=== PATIENT | female | born 1970 | race African-American/Black ===

== ENCOUNTER 2016-03-17 07:30 | Inpatient (IN) ==
--- NOTE | 2016-03-09 12:25 | EKG Report ---
Stationary ECG Study [facility] Test Date: 03/09/2016 12:22:28 PM Pat Name: SUDHIR MANSFIELD Department: Room: Gender: F Hair And Makeup Designer: YOUNG 03[birth year]16 : 1970 Requested by: Hiren Braxton Order Number: [id number] Reading MD: ALFONSO MACKENZIE Intervals [place] Rate: 74 P: 84 RI: 195 QRS: 60 QRSD: 81 T: 48 QT: 345 QTc: 372 Interpretive Statements SINUS RHYTHM LOW QRS VOLTAGE IN PRECORDIAL LEADS SEPTAL MYOCARDIAL INFARCTION, PROBABLY OLD Electronically Signed On 03-09-16 12:23:34 WOOD MACHINIST by ALFONSO MACKENZIE [email or web address]
[2016-03-09 12:26] LABS: Basophils % 0.6 % (0.0-0.8); Eosinophils # 0.1 10*3/uL (0.0-0.87); Eosinophils % 1.3 % (0.00-10.9); Hematocrit 42.1 VOL% (35.7-47.0); Hemoglobin 13.7 GM/DL (12.0-16.0); Immature Granulocytes % 0.2 %; Immature Granulocytes Absolute 0.01 #; Lymphocytes # 2.3 10*3/uL (1.4-4.0); Lymphocytes % 35.6 % (21.3-54.2); Mean Corpuscular HGB Conc 32.5 GM/DL (32-36); Mean Corpuscular Hemoglobin 29 PG (27-34); Mean Corpuscular Volume 89.8 FL (87-102); Mean Platelet Volume 10.8 FL (9.6-12.0); Monocytes # 0.4 10*3/uL (0.11-0.8); Monocytes % 6.2 % (1.7-12.7); Neutrophils # 3.6 10*3/uL (1.4-7.4); Neutrophils % 56.1 % (38.7-73.9); Platelet Count 276 10*3/uL (130-400); Red Blood Count 4.69 10*6/uL (3.8-5.5); Red Cell Distribution Width 13.2 % (9.3-17.3); White Blood Count 6.3 10*3/uL (4.5-13.71)
[2016-03-09 12:30] LABS: Apearance,Urine Slightly Hazy (Clear); Bilirubin,Urine Negative (Negative); Blood, Urine Negative (Negative); Glucose,Urine (UA) Negative (Negative); Ketones,Urine Negative (Negative); Mucus,Urine Occasional /LPF (Occasional); Nitrite,Urine Negative (Negative); Protein,Urine Negative; RBC,Urine 1 /HPF (0-4); Squamous Epithelial Cell,Urine Occasional /HPF (0-10); Urine Color Yellow (Yellow); Urine Specific Gravity 1.016 (1.001-1.035); Urine Urobilinogen < 2.0 EU/DL (0.2-1.0); WBC,Urine <1 /HPF (0-6)
[2016-03-09 12:47] LABS: PT Patient Result 11.1 SECS; Partial Thromboplastin Time 32.3 SECS (0-40)
[2016-03-09 13:13] LABS: Albumin 3.8 G/DL (3.4-5.0); Bilirubin,Total 0.4 MG/DL (0.2-1.0); Potassium 4.3 MMOL/L (3.5-5.1); Total Protein 8.2 G/DL (6.4-8.3)
--- NOTE | 2016-03-09 18:54 | XRay Report ---
Exam: XR chest 2V Date: 03/09/2016 11:21 AM Indication: Respiratory preop evaluation of the chest Comparison: None Technical:PA lateral Findings: The heart normal in size lungs are clear. The mediastinum is intact. Anterolateral marginal osteophytes are present. Impression: 1. No acute cardiopulmonary pathology 2. Mild degenerative spondylosis change thoracic spine PROCEDURE INTERPRETED AT [facility] DEPARTMENT OF RADIOLOGY Final Report Signed by: Dr. Bernard Brothers
[~2016-03-17 07:30] MED LIST: VANCOMYCIN INJ 1,000 MG in SODIUM CHLORIDE 0.9% 250 ML IV ONE
[2016-03-19] MEDS: LACTATED RINGERS 1,000 ML IV SCH (06:22)
[2016-03-19] MEDS ORDERED: VANCOMYCIN 1,000 MG VIAL ONE (06:35)
[2016-03-19] MEDS ORDERED: ceFAZolin 1,000 MG VIAL ONE (06:35)
[2016-03-19] MEDS ORDERED: SODIUM CHLORIDE 0.9% 100 ML IV ONE (06:35)
[2016-03-19] MEDS ORDERED: ROPIVACAINE 0.5% 30 ML VIAL ONE ×2 (06:45→08:49)
--- NOTE | 2016-03-19 07:08 | History and Physical Update ---
History and Physical Update - History and Physical H&P was reviewed, the patient examined and there: are no changes in the patients condition since last H&P was completed.
[2016-03-19] MEDS ORDERED: PROPOFOL 500 MG/50 ML BOTTLE IV ONE (07:10)
[2016-03-19] MEDS ORDERED: SUCCINYLCHOLINE 200 MG/10 ML VIAL ONE (07:10)
[2016-03-19] MEDS ORDERED: LABETALOL 100 MG/20 ML VIAL IV ONE (07:10)
[2016-03-19] MEDS ORDERED: ONDANSETRON 4 MG/2 ML VIAL IV PRN (07:10)
[2016-03-19] MEDS ORDERED: ONDANSETRON 4 MG/2 ML VIAL ONE ×2 (07:10→09:05)
[2016-03-19] MEDS ORDERED: LACTULOSE 20 GM/30 ML UDCUP PO PRN (07:10)
[2016-03-19] MEDS ORDERED: PROMETHAZINE 25 MG/1 ML VIAL IM PRN (07:10)
[2016-03-19] MEDS ORDERED: MAGNESIUM HYDROXIDE SUSP 30 ML UDCUP PO PRN (07:10)
[2016-03-19] MEDS ORDERED: HYDROmorphone 2 MG/1 ML VIAL IV PRN (07:10)
[2016-03-19] MEDS ORDERED: PHENYLEPHRINE 50 MG/5 ML VIAL ONE (07:10)
[2016-03-19] MEDS ORDERED: TEMAZEPAM 7.5 MG CAPSULE PO PRN (07:10)
[2016-03-19] MEDS ORDERED: LIDOCAINE 100 MG/5 ML SYRINGE ONE (07:10)
[2016-03-19] MEDS ORDERED: diphenhydrAMINE CAP 25 MG CAPSULE PO PRN (07:10)
[2016-03-19] MEDS ORDERED: BISACODYL 10 MG SUPP RECTAL PRN (07:10)
[2016-03-19] MEDS ORDERED: ASPIRIN EC 325 MG TABLET PO PRN (07:12)
[2016-03-19] MEDS: HYDROmorphone 2 MG/1 ML VIAL IV PRN ×4 (09:00→09:20)
[2016-03-19] MEDS ORDERED: HYDROmorphone 2 MG/1 ML VIAL ONE (09:05)
--- NOTE | 2016-03-19 09:11 | Anesthesia ---
Anesthesia Post OP - Post Ansesthetic Evaluation Patient seen in post op: Yes Resp: within normal limits CV: within normal limits Mental: within normal limits Temp: within normal limits Kzyf-Ol-[id number]: within normal limits Nausea and Vomiting: within normal limits Pain: within normal limits
[2016-03-19] MEDS ORDERED: SEVOFLURANE 1 UNIT/15 MINUTE INH ONE (09:13)
[2016-03-19] MEDS ORDERED: LACTATED RINGERS 1,000 ML IV ONE (09:14)
[2016-03-19] MEDS ORDERED: MIDAZOLAM 2 MG/2 ML VIAL ONE (09:14)
[2016-03-19] MEDS ORDERED: fentaNYL 100 MCG/2 ML VIAL ONE ×2 (09:14)
[2016-03-19] MEDS ORDERED: ACETAMINOPHEN 1,000 MG/100 ML VIAL IV ONE (09:14)
[2016-03-19] MEDS ORDERED: HYDROmorphone PCA 30 MG/30 ML SYRINGE IV ONE (09:44)
[2016-03-19] MEDS: HYDROmorphone PCA 30 MG/30 ML SYRINGE IV SCH (09:46)
--- NOTE | 2016-03-19 10:04 | XRay Report ---
XR knee 2V LT Indication: Joint replacement Comparison: None Technique: Frontal and lateral views of the left knee Findings: Status post total knee arthroplasty. No evidence of immediate hardware failure. Surgical drains and superficial skin rocio project over the knee. Small subcutaneous and joint space air noted which is likely postoperative. IMPRESSION: Status post total left knee arthroplasty. PROCEDURE INTERPRETED AT [facility] DEPARTMENT OF RADIOLOGY Final Report Signed by: Dr Jose Ramon Clark
--- NOTE | 2016-03-19 11:18 | Operative Note ---
DATE: 03/19/2016 PREOPERATIVE DIAGNOSIS: OSTEOARTHRITIS, LEFT KNEE. POSTOPERATIVE DIAGNOSIS: SAME. OPERATIVE PROCEDURE: Left total knee replacement ([place]). SURGEON: Hiren Braxton Jr., MD PRODUCTION COUNTER: Dr. Mckeon. ANESTHESIA: General. INDICATION: A 45-year-old white female with severe osteoarthritis. She maximized conservative treat ment through the years, presenting today for elective left total knee. OPERATIVE PROCEDURE: The patient was taken to the operating room and under general anesthetic, the left lower extremity was positioned, prepped and draped in the usual sterile manner. She received V ancomycin and Ancef preoperatively. The limb was elevated, exsanguinated, and tourniquet inflated t o 300 mmHg. A midline incision was made over the anterior aspect of the left knee, sharply dissected and carried down to the skin and subcutaneous tissue. A medial peripatellar arthrotomy was perform ed. The knee, revealing extensive tricompartmental degenerative changes. Intramedullary alignment guide was used to make the appropriate cuts about the distal femur and proximal tibia. Both were siz ed to a 5. A 6-millimeter fixed-bearing spacer selected. The PCL retained. After removal of the t rial components, all three components were cemented into place, the patellar resurfaced with a 38-bu tton. After the cement hardened, the tourniquet was deflated at 40 minutes as the wound was irrigat ed. Two 1/8-inch Hemovac drains placed, and it was closed in a standard fashion using #1 Vicryl for the arthrotomy, 2-0 Vicryl for the subcutaneous layer, and rocio for skin. A sterile dressing was applied. She was taken to the recovery room in stable condition.
--- NOTE | 2016-03-19 12:23 | Anesthesia ---
Anesthesia Procedures - Nerve Blocks Location: PACU Type of Block: Left: Femoral Patinet Consent: Patinet consented for above nerve block., Risks and benefits were discussed with patient,including infection,, bleeding,injury to surrounding structures, seizure, temporary nerve, Patient understands and accepts potential risks/benefits and agrees to, proceed. ASA Monitors on: pulse oximetry, EKG, BP cuff, oxygen via Local Anesthetic: 0.5% Ropivicaine (given in aliquots of 5cc and aspiration to total of 20cc) Ultrasound Used to: Recognize Landmarks, Visualize and ID Brachial Plexus in supraclavicular region, Visualize and ID interscalene groove Interscalene / Femoral BLK: Visualize local anesthetic spread Nerve Stimulator used: Yes Inject slowly in 5cc increments with:: Negative aspitation of heme, Paresthesia +/= Patient vitals signs stable throughout procedure.: Patient tolertaed the procedure well with no apparent complications.
[2016-03-19] MEDS: hydroCHLOROthiazide 25 MG TABLET PO SCH (12:54)
[2016-03-19] MEDS: VALSARTAN 160 MG TABLET PO SCH (12:54)
[2016-03-19] MEDS: FEXOFENADINE 180 MG TABLET PO SCH (12:54)
[2016-03-19] MEDS: amLODIPine 5 MG TABLET PO SCH (12:54)
[2016-03-19] MEDS: ceFAZolin 2,000 MG in PREMIX 1 EACH IV SCH ×2 (12:57→18:13)
--- NOTE | 2016-03-19 15:55 | Orthopedic Progress Note ---
Orthopediatrics - Subjective Interval history: Comfortable good pulse discussed up in a.m. Exam - Constitutional Vitals: Period Temp Pulse Resp BP Sys/Moeller Pulse Ox Last 24 Hr 96.9 F-98.3 F 62-78 16-20 107-160/66-97 96-100 Results - Labs CBC & BMP: 03/09/16 12:15 03/09/16 12:15 Specialty Discharge - Follow Up or Referrals - Discharge Medications No Action hydroCHLOROthiazide [Hydrochlorothiazide] 25 mg PO DAILY Aspirin [Ecotrin] 325 mg PO BEDTIME PRN PRN Reason: Pain Meloxicam [Mobic] 15 mg PO DAILY PRN PRN Reason: Arthritic Pain Fexofenadine [Janessa] 180 mg PO DAILY Amlodipine Besylate 5 mg PO DAILY Valsartan [Diovan] 160 mg PO DAILY
[2016-03-19] MEDS: FONDAPARINUX 2.5 MG/0.5 ML SYRINGE SUBCUT SCH (18:11)
[2016-03-20 06:15] LABS: Basophils % 0.3 % (0.0-0.8); Eosinophils % 0.4 % (0.00-10.9); Hematocrit 33.7 VOL% (35.7-47.0); Immature Granulocytes % 0.3 %; Immature Granulocytes Absolute 0.03 #; Lymphocytes # 1.9 10*3/uL (1.4-4.0); Lymphocytes % 19.6 % (21.3-54.2); Mean Corpuscular HGB Conc 32.6 GM/DL (32-36); Mean Corpuscular Hemoglobin 29 PG (27-34); Mean Corpuscular Volume 89.2 FL (87-102); Mean Platelet Volume 10.9 FL (9.6-12.0); Monocytes # 1.1 10*3/uL (0.11-0.8); Monocytes % 11.3 % (1.7-12.7); Neutrophils # 6.7 10*3/uL (1.4-7.4); Neutrophils % 68.1 % (38.7-73.9); Platelet Count 240 10*3/uL (130-400); Red Blood Count 3.78 10*6/uL (3.8-5.5); Red Cell Distribution Width 13.4 % (9.3-17.3); White Blood Count 9.9 10*3/uL (4.5-13.71)
--- NOTE | 2016-03-20 06:56 | Orthopedic Progress Note ---
Orthopediatrics - Subjective Interval history: Comfortable drain removed hemoglobin 11. Discussed start PT today was to go home with home health probably here through the weekend Exam - Constitutional Vitals: Period Temp Pulse Resp BP Sys/Moeller Pulse Ox Last 24 Hr 96.9 F-98.0 F 62-101 14-20 107-142/61-93 96-100 Results - Labs CBC & BMP: 03/20/16 05:56 03/09/16 12:15 Specialty Discharge - Follow Up or Referrals - Discharge Medications No Action hydroCHLOROthiazide [Hydrochlorothiazide] 25 mg PO DAILY Aspirin [Ecotrin] 325 mg PO BEDTIME PRN PRN Reason: Pain Meloxicam [Mobic] 15 mg PO DAILY PRN PRN Reason: Arthritic Pain Fexofenadine [Janessa] 180 mg PO DAILY Amlodipine Besylate 5 mg PO DAILY Valsartan [Diovan] 160 mg PO DAILY
[2016-03-20 06:58] LABS: Calcium 8.1 MG/DL (8.5-10.1)
[2016-03-20 06:59] LABS: Osmolality,Calculated 281.1 MOS/KG (273-304); Potassium 3.4 MMOL/L (3.5-5.1)
--- NOTE | 2016-03-20 08:36 | Cardiology Progress Note ---
Cardiology - PN: Subj Interval history: Doing well. No cardiac problems. EKG unchanged. Poor R-wave progression. No anterior AK. Call if needed. Exam (Progress Note) - Constitutional Vitals: Period Temp Pulse Resp BP Sys/Moeller Pulse Ox Last 24 Hr 96.9 F-98.0 F 62-101 14-20 107-142/61-93 96-100 Result/EKG - Labs CBC & BMP: 03/20/16 05:56 03/20/16 05:56 Labs: Laboratory Results - last 24 hr 03/20/16 03/20/16 05:56 05:56 WBC 9.9 RBC 3.78 L Hgb 11.0 L Hct 33.7 L MCV 89.2 MCH 29 MCHC 32.6 RDW 13.4 Plt Count 240 MPV 10.9 Neut % (Auto) 68.1 Lymph % (Auto) 19.6 L [place] % (Auto) 11.3 Eos % (Auto) 0.4 Baso % (Auto) 0.3 Neut # (Auto) 6.7 Lymph # (Auto) 1.9 [place] # (Auto) 1.1 H Eos # (Auto) 0.0 Baso # (Auto) 0.0 Immature Gran % 0.3 Nucleated RBC % 0.0 Immature Gran # 0.03 Nucleated RBCs # 0.00 Sodium 142 Potassium 3.4 L Chloride 104 Carbon Dioxide 26 Anion Gap 15.4 H BUN 8 Creatinine 0.80 GFR Calculation 146 BUN/Creatinine Ratio 10.00 Glucose 112 H Calculated Osmolality 281.1 Calcium 8.1 L Specialty Discharge - Follow Up or Referrals - Discharge Medications No Action hydroCHLOROthiazide [Hydrochlorothiazide] 25 mg PO DAILY Aspirin [Ecotrin] 325 mg PO BEDTIME PRN PRN Reason: Pain Meloxicam [Mobic] 15 mg PO DAILY PRN PRN Reason: Arthritic Pain Fexofenadine [Janessa] 180 mg PO DAILY Amlodipine Besylate 5 mg PO DAILY Valsartan [Diovan] 160 mg PO DAILY
[2016-03-20] MEDS: amLODIPine 5 MG TABLET PO SCH (09:17)
[2016-03-20] MEDS: VALSARTAN 160 MG TABLET PO SCH (09:17)
[2016-03-20] MEDS: FEXOFENADINE 180 MG TABLET PO SCH (09:17)
[2016-03-20] MEDS: hydroCHLOROthiazide 25 MG TABLET PO SCH (09:18)
[2016-03-20] MEDS: LACTATED RINGERS 1,000 ML IV SCH (09:55)
[2016-03-20] MEDS: HYDROmorphone PCA 30 MG/30 ML SYRINGE IV SCH (09:56)
--- NOTE | 2016-03-20 11:21 | Pathology Report from [facility] ---
ACCESSION # : [id number] PATIENT NAME : Edith Jackson ORDERING DR : VEGA BERNARD JR, MD CLINICAL HX: Left knee ostoearthritis POST-OP DX: Same SPECIMEN INFO: Left knee bone and tissue GROSS DESCRIPTION: The specimen is received in formalin labeled with the patient 's name Edith Jackson is an aggregate of bone, soft tissue and cartilage measuring 4.0 x 6.0 cm. The articular surfaces are focally degenerative with areas of sub chondral eburnation seen. Animation Camera Operator sections are submitted in one cassette. DIAGNOSIS FOR EDITH JACKSON: LEFT KNEE BONE AND TISSUE, TOTAL REPLACEMENT: Osteoarthritis. SERVICE DATE: 03/19/2016 REPORT DATE: 03/20/2016 PATHOLOGIST: Rosario Lo M.D. [facility]
[2016-03-20] MEDS: MELOXICAM 7.5 MG TABLET PO PRN (17:55)
[2016-03-20] MEDS: FONDAPARINUX 2.5 MG/0.5 ML SYRINGE SUBCUT SCH (17:55)
[2016-03-21] MEDS: LACTATED RINGERS 1,000 ML IV SCH (04:22)
[2016-03-21 04:43] LABS: Basophils % 0.3 % (0.0-0.8); Eosinophils % 0.4 % (0.00-10.9); Hematocrit 32.8 VOL% (35.7-47.0); Hemoglobin 10.7 GM/DL (12.0-16.0); Immature Granulocytes % 0.3 %; Immature Granulocytes Absolute 0.03 #; Lymphocytes # 1.3 10*3/uL (1.4-4.0); Lymphocytes % 13.5 % (21.3-54.2); Mean Corpuscular HGB Conc 32.6 GM/DL (32-36); Mean Corpuscular Hemoglobin 29 PG (27-34); Mean Corpuscular Volume 88.6 FL (87-102); Mean Platelet Volume 11.3 FL (9.6-12.0); Monocytes # 1.1 10*3/uL (0.11-0.8); Monocytes % 11.3 % (1.7-12.7); Neutrophils % 74.2 % (38.7-73.9); Platelet Count 228 10*3/uL (130-400); Red Cell Distribution Width 13.3 % (9.3-17.3); White Blood Count 9.4 10*3/uL (4.5-13.71)
--- NOTE | 2016-03-21 07:48 | Orthopedic Progress Note ---
Assessment and Plan (1) Status post total knee replacement, left Status: Acute Assessment and plan: DVT prophylaxis Out of bed with therapy Discharge Wednesday or Wednesday Current Visit: Yes Orthopediatrics - Subjective Interval history: Patient was able to ambulate to the hallway yesterday. Her pain is controlled. On exam her dressings clean and dry Exam - Constitutional Vitals: Period Temp Pulse Resp BP Sys/Moeller Pulse Ox Last 24 Hr 97.1 F-98.7 F 72-94 16-20 130-161/55-84 92-98 Results - Labs CBC & BMP: 03/21/16 03:59 03/20/16 05:56 Specialty Discharge - Follow Up or Referrals - Discharge Medications No Action hydroCHLOROthiazide [Hydrochlorothiazide] 25 mg PO DAILY Aspirin [Ecotrin] 325 mg PO BEDTIME PRN PRN Reason: Pain Meloxicam [Mobic] 15 mg PO DAILY PRN PRN Reason: Arthritic Pain Fexofenadine [Janessa] 180 mg PO DAILY Amlodipine Besylate 5 mg PO DAILY Valsartan [Diovan] 160 mg PO DAILY
[2016-03-21] MEDS: hydroCHLOROthiazide 25 MG TABLET PO SCH (09:30)
[2016-03-21] MEDS: amLODIPine 5 MG TABLET PO SCH (09:30)
[2016-03-21] MEDS: FEXOFENADINE 180 MG TABLET PO SCH (09:30)
[2016-03-21] MEDS: VALSARTAN 160 MG TABLET PO SCH (09:30)
[2016-03-21] MEDS: MELOXICAM 7.5 MG TABLET PO PRN (17:23)
[2016-03-21] MEDS: FONDAPARINUX 2.5 MG/0.5 ML SYRINGE SUBCUT SCH (17:23)
[2016-03-22 04:56] LABS: Basophils % 0.4 % (0.0-0.8); Eosinophils # 0.2 10*3/uL (0.0-0.87); Eosinophils % 2.3 % (0.00-10.9); Hematocrit 31.9 VOL% (35.7-47.0); Hemoglobin 10.3 GM/DL (12.0-16.0); Immature Granulocytes % 0.3 %; Immature Granulocytes Absolute 0.03 #; Lymphocytes # 2.4 10*3/uL (1.4-4.0); Lymphocytes % 26.6 % (21.3-54.2); Mean Corpuscular HGB Conc 32.3 GM/DL (32-36); Mean Corpuscular Hemoglobin 29 PG (27-34); Mean Corpuscular Volume 90.4 FL (87-102); Mean Platelet Volume 11.2 FL (9.6-12.0); Monocytes # 1.2 10*3/uL (0.11-0.8); Monocytes % 12.6 % (1.7-12.7); Neutrophils # 5.3 10*3/uL (1.4-7.4); Neutrophils % 57.8 % (38.7-73.9); Platelet Count 226 10*3/uL (130-400); Red Blood Count 3.53 10*6/uL (3.8-5.5); Red Cell Distribution Width 13.4 % (9.3-17.3); White Blood Count 9.1 10*3/uL (4.5-13.71)
--- NOTE | 2016-03-22 07:58 | Orthopedic Progress Note ---
Assessment and Plan (1) Status post total knee replacement, left Status: Acute Assessment and plan: DVT prophylaxis Out of bed with therapy Discharge Wednesday or Wednesday Current Visit: Yes Exam - Constitutional Vitals: Period Temp Pulse Resp BP Sys/Moeller Pulse Ox Last 24 Hr 97.4 F-99.1 F 80-105 16-20 136-174/75-96 94-97 Results - Labs CBC & BMP: 03/22/16 03:56 03/20/16 05:56 Specialty Discharge - Follow Up or Referrals - Discharge Medications No Action hydroCHLOROthiazide [Hydrochlorothiazide] 25 mg PO DAILY Aspirin [Ecotrin] 325 mg PO BEDTIME PRN PRN Reason: Pain Meloxicam [Mobic] 15 mg PO DAILY PRN PRN Reason: Arthritic Pain Fexofenadine [Janessa] 180 mg PO DAILY Amlodipine Besylate 5 mg PO DAILY Valsartan [Diovan] 160 mg PO DAILY
--- NOTE | 2016-03-22 09:15 | Discharge Summary ---
Hospital Course - Hospital Course Hospital Course: 45-year-old female admitted hospital following left total knee arthroplasty. She received routine antibiotics and thromboprophylaxis postoperatively. She did well with therapy and when she was ambulating safely, she is discharged home with home health and home PT. Plan discharge her wounds clean and dry and she is neurovascularly intact in the left lower extremity. Diagnosis - Discharge Diagnosis (1) Status post total knee replacement, left Status: Acute Specialty Discharge - Follow Up or Referrals - Discharge Medications No Action hydroCHLOROthiazide [Hydrochlorothiazide] 25 mg PO DAILY Aspirin [Ecotrin] 325 mg PO BEDTIME PRN PRN Reason: Pain Meloxicam [Mobic] 15 mg PO DAILY PRN PRN Reason: Arthritic Pain Fexofenadine [Janessa] 180 mg PO DAILY Amlodipine Besylate 5 mg PO DAILY Valsartan [Diovan] 160 mg PO DAILY Discharge Plan - Discharge Data Disposition: Home Health Service Condition at Discharge: Stable Discharge Diet: advance to your usual diet Activity: ambulate only with your walker Hygiene: may shower Weight Bearing at Discharge: weight bear as tolerated Driving: not until seen by doctor Contact your physician if you experience:: fever over 101, Difficulty voiding, Redness or swelling, Nausea/Vomiting, Shortness of breath, Bleeding, pain uncontrolled by pain medications Wound / Dressing Care Instructions: Daily dressing change to left knee - Discharge Medications New HYDROcodone/ACETAMIN 7.5-325 [[place] 7.5-325] 1 - 2 tablet PO Q4H PRN #60 tablet PRN Reason: Pain Moderate (4-7) Continue hydroCHLOROthiazide [Hydrochlorothiazide] 25 mg PO DAILY Aspirin [Ecotrin] 325 mg PO BEDTIME PRN PRN Reason: Pain Meloxicam [Mobic] 15 mg PO DAILY PRN PRN Reason: Arthritic Pain Fexofenadine [Janessa] 180 mg PO DAILY Amlodipine Besylate 5 mg PO DAILY Valsartan [Diovan] 160 mg PO DAILY - Follow Up or Referral Follow Up: Hiren Braxton Jr., MD [Physician] - (3-4 weeks) - Forms/Instructions Additional Discharge Instructions: Weight-bear as tolerated, total knee protocol. Daily dressing change. [place] out 04/01/2016 Exam - Constitutional Vitals: Period Temp Pulse Resp BP Sys/Moeller Pulse Ox Last 24 Hr 97.4 F-99.1 F 80-105 16-20 136-174/75-88 94-97 Discharge Results Labs on day of discharge: Labs from last 24 hours 03/22/16 03:56 WBC 9.1 RBC 3.53 L Hgb 10.3 L Hct 31.9 L MCV 90.4 MCH 29 MCHC 32.3 RDW 13.4 Plt Count 226 MPV 11.2 Neut % (Auto) 57.8 Lymph % (Auto) 26.6 [place] % (Auto) 12.6 Eos % (Auto) 2.3 Baso % (Auto) 0.4 Neut # (Auto) 5.3 Lymph # (Auto) 2.4 [place] # (Auto) 1.2 H Eos # (Auto) 0.2 Baso # (Auto) 0.0 Immature Gran % 0.3 Nucleated RBC % 0.0 Immature Gran # 0.03 Nucleated RBCs # 0.00 DS: Provider Date of admission: 03/19/16 05:35 Primary care physician: RIYA Chowdhury Attending physician on admission: Hiren Braxton Jr., MD Consults: 03/19/16 07:10 Consult to Case Mgmt/Social Srvs [CONS] Routine Reason for Case Mgmt/Social Srvs: Rehab Home Health Equipment Consult Comment: Bedside Commode, CPM, f/home, Pt 5ft 5in weighs 324lbs, deliver to home Consult to Occupational Therapy [CONS] Routine Reason for Occupational Therapy: Evaluate and Treat Consult Comment: ADL's Consult to Physical Therapy [CONS] Routine Reason for Physical Therapy: Evaluate and Treat Gait Training Consult Comment: CPM 0-30 this week and then advance 03/19/16 07:12 Consult to Physician [CONS] Routine Comment: Consulting Provider: Jonah Nuno Person Notified: ANNY Date Notified: 03/19/16 Time Notified: 16:07 Consult Notification Comment: STATES DR. NUNO DOES NOT COME TO HOSPITAL BUT SHE WILL LET HIM KNOW. [facility] ALSO CALLED SINCE DR. NUNO DOES NOT COME TO HOSPITAL AND WERNER STATES TO CALL DR. NUNO'S OFFICE. 03/20/16 10:46 Consult to Physical Therapy [CONS] Routine Reason for Physical Therapy: Other Consult Comment: Ordering Standard Walker for patient to take home w/her f/ home rehab. Discharging clinician: Rivera Mckeon MD
[2016-03-22] MEDS: hydroCHLOROthiazide 25 MG TABLET PO SCH (10:12)
[2016-03-22] MEDS: FEXOFENADINE 180 MG TABLET PO SCH (10:12)
[2016-03-22] MEDS: VALSARTAN 160 MG TABLET PO SCH (10:12)
[2016-03-22] MEDS: amLODIPine 5 MG TABLET PO SCH (10:12)
[2016-03-22 12:04] VITALS: BP 159/90
== END 2016-03-22 11:34 | disposition home health service (06) | DRG 470 ==
LOC: N.SDSINP 03-19 05:35 → N.3E 03-19 10:55
PROVIDERS: ADMIT Orthopaedic Surgery; ATTEND Orthopaedic Surgery